=== PATIENT | male | born 1975 | race Caucasian/White ===

== ENCOUNTER 2024-01-21 15:33 | Emergency (ER) | payer MEDICAID ==
[2024-01-21] MEDS: PROPARACAINE HCL 0.5% 15 ML OPHTHALMIC SOLUTION OU ONE (18:40)
[2024-01-21] MEDS: FLUORESCEIN SODIUM 1 MG STRIP OU ONE (18:41)
== END 2024-01-21 19:48 | disposition home or self-care (01) ==
LOC: EMS 15:44
DX: H57.12 Ocular pain, left eye (principal)
CPT/HCPCS: 99283